=== PATIENT | female | born 1975 | race Caucasian/White ===

== ENCOUNTER 2017-05-15 06:02 | Emergency (ER) | payer BC, OTHER ==
[2017-05-15 06:10] VITALS: BP 158/90
--- NOTE | 2017-05-15 06:20 | ERNOTE ---
Lower Extremity HPI - Narrative Date of Service: 05/15/17 - General Lower Extremities Pain: hip: left Time Seen by Provider: 05/15/17 06:08 Source: patient Exam Limitations: no limitations - Immun/Allergies/Home Medications Immunizations: IMMUNIZATION HX Immunizations Up to Date Yes History of Influenza Vaccine Yes Hx Pneumococcal Vaccination No Allergies/Adverse Reactions: Allergies Allergy/AdvReac Type Severity Reaction Status Date / Time No Known Allergies Allergy Unverified 05/15/17 06:05 Home Medications: HOME MEDICATIONS Cephalexin Monohydrate [Keflex] 500 mg PO QID #40 cap 05/15/17 [Last Taken Unknown] Ciprofloxacin HCl [Cipro] 500 mg PO BID 05/15/17 [Last Taken Unknown] Enalapril Maleate [Vasotec] 20 mg PO DAILY 05/15/17 [Last Taken Unknown] Fluconazole [Diflucan] 100 mg PO DAILY #2 tab 05/15/17 [Last Taken Unknown] - History of Present Illness Narrative: This is a 41-year-old female who just got back from an 9 day trip to [place]. She had prolonged travel of more than 30 hours with layovers. She has a history of lymphedema and cellulitis. She comes in noticing that her left lower extremity is swollen and tender. It hurts some very mild amount when she moves it in certain directions. [place] feels full or slightly stiff. Review of Systems - Review of Systems Constitutional: Present: no symptoms reported EYE: Present: no symptoms reported ENT: Present: no symptoms reported Respiratory: Present: no symptoms reported Cardiology: Present: no symptoms reported Gastrointestinal/Abdominal: Present: no symptoms reported Genitourinary: Present: no symptoms reported Musculoskeletal: Present: muscle pain, joint pain Skin: Present: no symptoms reported Neurological: Present: no symptoms reported Endocrine: Present: no symptoms reported Hematologic/Lymphatic: Present: no symptoms reported Psych: Present: no symptoms reported All Other Systems: All systems neg except as marked - Patient's Past Medical History Patient History - Medical: Obesity Patient History - Cardiac/Respiratory: Bronchitis, Hypertension Patient History - Cancer: Cervical Patient History - Surgical Procedures: Hysterectomy, Hernia Repair Patient History - Other: None - Social History Living Situations: home Abuse History: No History of abuse Psych History: No pertinent hx Smoking Status: Never smoker Alcohol Use: occasionally Drug Use: none - Immunizations Immunizations Up to Date: Yes Hx Pneumococcal Vaccination: No History of Influenza Vaccine: Yes Physical Exam - Physical Exam General Appearance: Present: wd/wn, alert, no apparent distress Head Exam: Present: normal inspection, no evidence of injury Ears, Nose, Throat: Present: normal ENT inspection, normal pharynx Neck: Present: normal inspection, nontender Respiratory: Present: no respiratory distress, normal breath sounds, no accessory muscle use, chest nontender, lungs clear Cardiovascular/Chest: Present: regular rate, rhythm, no murmur, normal peripheral pulses Gastrointestinal/Abdominal: Present: normal bowel sounds, nontender, nondistended, soft, no organomegaly Back Exam: Present: normal inspection Extremity Exam: Present: other - patient has slight warmth to the extremity. She has chronic venous stasis changes. I do not see cellulitic changes. Slightly erythematous. No palpable cords. Neurological Exam: Present: alert, oriented, normal mood/affect, no motor/ sensory deficits Skin Exam: Present: normal color, warm/dry Lymphatic Exam: Present: no adenopathy ED Progress - Vital Signs Vital Signs: Vital Signs 05/15/17 06:06 Temperature 36.4 C L Pulse Rate 78 Respiratory 18 Rate Blood Pressure 158/90 O2 Sat by Pulse 100 Oximetry - CT/Ultrasound CT/Ultrasound Narrative: Ultrasound was performed and fails to demonstrate acute DVT - Progress/Reassessment Chief Complaint: Lower Extremity Pain/ Injury Departure Clinical Impression: Cellulitis - Departure Disposition: Home self-care Condition: Stable Instructions: Cellulitis, Adult, [id number] Additional Instructions: As we discussed there are really 3 possibilities with her leg. #1 you may have an infection of the skin called cellulitis. You have an open wound and you have had cellulitis in the past. Her leg is slightly warm. U do not have a fever. I think placing U on a course of antibiotics would be appropriate. If you leg become significantly more red or warm, you develop a high fever or develop new worrisome symptoms need to return to the ER. #2 you may have the development of a DVT, but just not have one big enough for us to see yet. Leg which continues to be swollen despite antibiotic treatment for a week needs to get a repeat ultrasound, especially in a person who is been on recent plane trips or travel H you have been. #3 this may represent nothing which is an emergency. A fluid collection behind the knee color Bakers cyst may result in accumulation of venous blood in your leg and caused some swelling and discomfort. Certainly arthritis in her knee from being up and walking around on vacation could make a Riley's cyst worse. There are myriad other possible causes, but the 2 big ones of concern in the emergency Department R cellulitis and blood clot. [facility]yer family doctor and set up a follow-up appointment. Prescriptions: Cephalexin Monohydrate [Keflex] 500 mg PO QID #40 cap Fluconazole [Diflucan] 100 mg PO DAILY #2 tab
--- OUTSIDE RECORDS SUMMARY | 2017-05-15 06:33 | XMS REPORT | Summary of Care ---
:1975 Author Organization [facility] Address [address] [place] [address] Care Team Providers Name Role Phone Belkis Brenner Primary Care Physician Encounter Date(s): 11/09/16 - 11/09/16 [facility], [address] [place], [place] [address] Discharge Disposition: 01 Discharged to Home or Self Care Attending Physician: Maynor Anne MD Referring Physician: Belkis Brenner DO Vital Signs Most recent to oldest [Reference Range]: 1 Blood Pressure [90-130/60-90 mmHg] 130/80mmHg (11/09/16 1:44 PM) Mean Arterial Pressure, Cuff 97 mmHg (11/09/16 1:44 PM) Most recent to oldest [Reference Range]: 1 Height/Length Measured 180 cm (11/09/16 1:44 PM) Weight Dosing 167.00 kg1 (11/09/16 1:53 PM) Weight Measured 167 kg (11/09/16 1:44 PM) BSA Measured 2.73 m2 (11/09/16 1:44 PM) Body Mass Index Measured 51.54 kg/m2 (11/09/16 1:44 PM) 1Result Comment: This result was because the dosing weight was either not entered or it is>30 days old. This result is based off: Weight Measured November 09, 2016 13:44:00 DRY WALL APPLICATOR by Lisa Hernandez RN Problem List Condition Effective Dates Status Health Status Informant Cervical cancer(Confirmed) Active Hypertension(Confirmed) Active Allergies, Adverse Reactions, Alerts No Known Medication Allergies Medications enalapril 10 mg oral tablet 1 tab(s), Oral, Daily, Start Date: 11/09/16 13:49:00 DRY WALL APPLICATOR Start Date: 11/09/16 Status: Ordered Results No data available for this section Immunizations No data available for this section Procedures Procedure Date Related Diagnosis Body Site Hysterectomy1 10/09/07 Tonsillectomy 1Ca cervix, radical robotic hysterectomy,left inguinal node dissection and abd wall muscle biopsy Social History No data available for this section Assessment and Plan No data available for this section
--- OUTSIDE RECORDS SUMMARY | 2017-05-15 06:33 | XMS REPORT | Summary of Care ---
:1975 Author Organization [facility] Address [address] [place] [address] Care Team Providers Name Role Phone Belkis Brenner Primary Care Physician Encounter Date(s): 12/13/16 - 12/13/16 [facility], [address] [place], [place] [address] Discharge Disposition: 01 Discharged to Home or Self Care Attending Physician: Maynor Anne MD Referring Physician: Maynor Anne MD Vital Signs Most recent to oldest [Reference Range]: 1 Blood Pressure [90-130/60-90 mmHg] 138/78mmHg *HI* (12/13/16 9:30 AM) Mean Arterial Pressure, Cuff 98 mmHg (12/13/16 9:30 AM) Most recent to oldest [Reference Range]: 1 Height/Length Measured 182.8 cm (12/13/16 9:30 AM) Weight Dosing 164.80 kg1 (12/13/16 9:34 AM) Weight Measured 164.8 kg (12/13/16 9:30 AM) BSA Measured 2.74 m2 (12/13/16 9:30 AM) Body Mass Index Measured 49.32 kg/m2 (12/13/16 9:30 AM) 1Result Comment: This result was because the dosing weight was either not entered or it is>30 days old. This result is based off: Weight Measured December 13, 2016 09:30:00 CDT by Anabell Chandra RN Problem List Condition Effective Dates Status Health Status Informant Cervical cancer(Confirmed) Active Hypertension(Confirmed) Active Allergies, Adverse Reactions, Alerts No Known Medication Allergies Medications enalapril 10 mg oral tablet 1 tab(s), Oral, Daily, Start Date: 11/09/16 13:49:00 POLICY SERVICE COORDINATOR Start Date: 11/09/16 Status: Orderednortriptyline 10 mg oral capsule 2 cap(s), Oral, HS, 1 qhs X 5 days then increase to 2 qhs, # 60 cap(s), 0 Refill (s), Start Date: 12/13/16 9:43:00 CDT, Pharmacy: [facility] [id number] Special Instructions: 1 qhs X 5 days then increase to 2 qhs Start Date: 12/13/16 Status: Ordered Results No data available for this section Immunizations No data available for this section Procedures Procedure Date Related Diagnosis Body Site Repair Ventral Hernia Laparoscopic1 11/24/16 Hysterectomy2 10/09/07 Tonsillectomy 1auto-populated from documented surgical [id number] cervix, radical robotic hysterectomy,left inguinal node dissection and abd wall muscle biopsy Social History No data available for this section Assessment and Plan No data available for this section
--- OUTSIDE RECORDS SUMMARY | 2017-05-15 06:33 | XMS REPORT | Summary of Care ---
:1975 Author Organization [facility] Address [address] [place] [address]- Care Team Providers Name Role Phone Belkis Brenner Primary Care Physician Encounter Date(s): 11/24/16 - 11/24/16 [facility] [address] [place] [address] [facility] Discharge Disposition: 01 Discharged to Home or Self Care Attending Physician: Maynor Anne MD Admitting Physician: Maynor Anne MD Vital Signs Most recent to oldest 1 2 3 [Reference Range]: Temperature Temporal Artery 36.4 DegC 36.9 DegC [36-38 DegC] (11/24/16 9:21 AM) (11/24/16 8:18 AM) Temperature Temporal Artery 36.5 DegC [36.0-38.0 DegC] (11/24/16 6:02 AM) Heart Rate Monitored [60-100 65 bpm 69 bpm 69 bpm bpm] (11/24/16 10:00 AM) (11/24/16 9:45 AM) (11/24/16 9:25 AM) Respiratory Rate [12-20 16 br/min 16 br/min 16 br/min br/min] (11/24/16 10:37 AM) (11/24/16 9:45 AM) (11/24/16 9:25 AM) SpO2 [90-100 %] 97 % 99 % 100 % (11/24/16 10:00 AM) (11/24/16 9:45 AM) (11/24/16 9:25 AM) SpO2 Location Right hand Left hand Left hand (11/24/16 9:45 AM) (11/24/16 9:25 AM) (11/24/16 9:10 AM) Blood Pressure [90-130/60-90 99/64mmHg 119/63mmHg 122/67mmHg mmHg] (11/24/16 10:00 AM) (11/24/16 9:45 AM) (11/24/16 9:25 AM) Blood Pressure Location Right arm (11/24/16 10:00 AM) Most recent to oldest [Reference Range]: 1 2 3 Height/Length Measured 182.8 cm (11/24/16 6:02 AM) Height/Length Estimated 182.88 cm 182.88 cm (11/24/16 6:02 AM) (11/23/16 5:50 PM) Weight Estimated 164.5 kg 165.56 kg (11/24/16 6:02 AM) (11/23/16 5:50 PM) Weight Dosing 164.5 kg (11/24/16 6:02 AM) Weight Measured 164.5 kg (11/24/16 6:02 AM) BSA Measured 2.74 m2 (11/24/16 6:02 AM) BSA Estimated 2.89 m2 (11/24/16 6:02 AM) Body Mass Index Measured 49.23 kg/m2 (11/24/16 6:02 AM) Body Mass Index Estimated 49.19 kg/m2 (11/24/16 6:02 AM) Problem List Condition Effective Dates Status Health Status Informant Cervical cancer(Confirmed) Active Hypertension(Confirmed) Active Allergies, Adverse Reactions, Alerts No Known Medication Allergies Medications enalapril 10 mg oral tablet 1 tab(s), Oral, Daily, Start Date: 11/09/16 13:49:00 MEDICAL OFFICE RECEPTIONIST ASSISTANT Start Date: 11/09/16 Status: Ordered Results Patient Viewable Results Most recent to oldest 1 2 3 [Reference Range]: AN - Fi O2 95 % % 95 % % 95 % % (11/24/16 8:15 AM) (11/24/16 8:10 AM) (11/24/16 8:05 AM) Immunizations No data available for this section Procedures Procedure Date Related Diagnosis Body Site Repair Ventral Hernia Laparoscopic1 11/24/16 Hysterectomy2 10/09/07 Tonsillectomy 1auto-populated from documented surgical [id number] cervix, radical robotic hysterectomy,left inguinal node dissection and abd wall muscle biopsy Social History No data available for this section Assessment and Plan No data available for this section
== END 2017-05-15 07:48 | disposition home or self-care (01) ==
LOC: ER 06:02
DX: L03.116 Cellulitis of left lower limb (principal); Z85.41 Personal history of malignant neoplasm of cervix uteri; I10 Essential (primary) hypertension